=== PATIENT | female | born 1975 | race Caucasian/White ===

== ENCOUNTER 2017-11-04 13:32 | Emergency (ER) | payer OTHER, SELFPAY | END 2017-11-04 14:12 | disposition home or self-care (01) | PROVIDERS: Emergency Provider Nurse Practitioner Family; Family Provider Family Medicine; Visit Provider Nurse Practitioner Family | DX: J09.X2 Influenza due to identified novel influenza A virus with other respiratory manifestations (principal) | CPT/HCPCS: 87804; 99201 ==

== ENCOUNTER → 2017-12-17 08:56 | Outpatient (CLI) | payer OTHER, SELFPAY ==
[2017-12-17 10:36] LABS: Alanine Aminotransferase 25 U/L (12-78); Albumin Level 3.7 gm/dL (3.4-5.0); Alkaline Phosphatase 60 U/L (46-116); Anion Gap 15.6 mEq/L (5-15); Aspartate Amino Transferase 14 U/L (15-37); Bilirubin,Total 0.3 mg/dL (0.2-1.0); Blood Urea Nitrogen 10 mg/dL (7-18); Carbon Dioxide 25 mmol/L (21.0-32.0); Chloride 105 mmol/L (98-107); Chol/HDL Ratio 4.3 (1-3.5); Cholesterol 213 mg/dL (140-200); Creatinine,Serum 0.65 mg/dL (0.55-1.02); Estimated Glomerular Filt Rate 100 ml/min (>60); GFR (African American) 122 ML/MIN (>60); Globulin 3.7 gm/dl (1.3-3.2); Glucose 86 mg/dL (74-106); HDL Cholesterol 50 mg/dL (29-89); LDL Cholesterol 132 mg/dL (0-130); Potassium 4.6 mmoL/L (3.5-5.1); Sodium 141 mmol/L (136-145); Total Protein,Serum 7.4 gm/dL (6.4-8.2); Triglycerides 154 mg/dL (30-200); VLDL Cholesterol 31 mg/dL (0-40)
[2017-12-20 06:28] LABS: Vitamin D 25 Hydroxy 28.8 ng/mL (30.0-100.0)
[2017-12-20 06:31] LABS: Vitamin B12 646 pg/mL (232-1245)
== END ==
PROVIDERS: PCP Physician Assistant; Visit Provider Physician Assistant
DX: E53.8 Deficiency of other specified B group vitamins (principal); E55.9 Vitamin D deficiency, unspecified; Z13.220 Encounter for screening for lipoid disorders
CPT/HCPCS: 36415; 80053; 80061; 82607; 82652

== ENCOUNTER → 2018-01-23 16:25 | Outpatient (CLI) | payer OTHER, SELFPAY ==
--- NOTE | 2018-01-23 16:28 | MM_ITS ---
MM Dig screening mamm BI w/CAD CAD Screening ORDERING PHYSICIAN : Polina Ruiz PATIENT AGE: 42 years GENDER: Female COMPARISON: Previous mammograms: 01/07/2017 INDICATION: Routine screening. Does taking female hormones. No new complaints. Family history. Mother with breast cancer postmenopausal. TECHNIQUE: Standard CC and MLO images were obtained. R2 CAD reviewed. FINDINGS: Low-density breast bilaterally with no dominant mass nor suspicious calcifications in either breast. RIGHT BREAST:. No new areas of concern. Follow-up one year. LEFT BREAST:. Stable small nodular density at the deep left breast appears stable an compatible small intramammary lymph nodes. No significant new findings. . There are some small scattered skin calcifications seen seen along the inferior medial breast but these are slightly more numerous today but appear to be benign features and annual follow-up adequate. IMPRESSION: Stable bilateral mammogram with no new findings. Follow-up one year recommended & would be encouraged given patient's family history BI-RADS Category: 1 Negative RECOMMENDED FOLLOW-UP: 1YR - 1 YEAR FOLLOW-UP (A letter has been sent to the patient regarding results of the study.)
== END ==
PROVIDERS: Family Provider Family Medicine; PCP Family Medicine; Visit Provider Obstetrics & Gynecology Gynecology
DX: Z12.31 Encounter for screening mammogram for malignant neoplasm of breast (principal)
CPT/HCPCS: 77067

== ENCOUNTER → 2019-03-02 13:08 | Outpatient (CLI) | payer OTHER, SELFPAY ==
--- NOTE | 2019-03-02 13:12 | MM_ITS ---
MM Dig screening mamm BI w/CAD CAD Screening COMPARISON: Digital mammograms with CAD 01/23/2018 and 01/07/2017 INDICATION: There is a history of breast cancer in patient's mother diagnosed after menopause. TECHNIQUE: Standard CC and MLO images were obtained. R2 CAD reviewed. FINDINGS: Scattered fibroglandular densities are seen throughout both breast. There are stable small benign-appearing nodular densities near the axillary tails of each breast likely low-lying nodes. There is a small nodular density central portion left breast which is stable and unchanged from previous exam and only definitely seen on the cc view there is no suspicious lesion and there are no suspicious microcalcifications. There are couple benign-appearing microcalcifications in each breast. IMPRESSION: Fibrofatty parenchyma with no suspicious lesion seen BI-RADS Category: 2 Benign Finding(s) RECOMMENDED FOLLOW-UP: 1YR - 1 YEAR FOLLOW-UP (A letter has been sent to the patient regarding results of the study.)
== END ==
PROVIDERS: PCP Family Medicine; Visit Provider Obstetrics & Gynecology Gynecology
DX: Z12.31 Encounter for screening mammogram for malignant neoplasm of breast (principal)
CPT/HCPCS: 77067

== ENCOUNTER → 2019-03-08 08:29 | Outpatient (CLI) | payer OTHER, SELFPAY ==
[2019-03-08 10:31] LABS: Alanine Aminotransferase 22 U/L (12-78); Albumin Level 3.7 gm/dL (3.4-5.0); Alkaline Phosphatase 65 U/L (46-116); Anion Gap 15.4 mEq/L (5-15); Aspartate Amino Transferase 13 U/L (15-37); Bilirubin,Total 0.5 mg/dL (0.2-1.0); Blood Urea Nitrogen 9 mg/dL (7-18); Calcium 9.3 mg/dL (8.5-10.1); Carbon Dioxide 25 mmol/L (21.0-32.0); Chloride 102 mmol/L (98-107); Chol/HDL Ratio 4.5 (1-3.5); Cholesterol 221 mg/dL (140-200); Creatinine,Serum 0.68 mg/dL (0.55-1.02); Estimated Glomerular Filt Rate 94 ml/min (>60); GFR (African American) 114 ML/MIN (>60); Globulin 3.7 gm/dl (1.3-3.2); Glucose 84 mg/dL (74-106); HDL Cholesterol 49 mg/dL (29-89); LDL Cholesterol 138 mg/dL (0-130); Potassium 4.4 mmoL/L (3.5-5.1); Sodium 138 mmol/L (136-145); Thyroid Stimulating Hormone 1.86 uIU/ml (0.358-3.740); Total Protein,Serum 7.4 gm/dL (6.4-8.2); Triglycerides 169 mg/dL (30-200); VLDL Cholesterol 34 mg/dL (0-40)
[2019-03-09 14:43] LABS: Vitamin B12 1060 pg/mL (232-1245); Vitamin D 25 Hydroxy 32.9 ng/mL (30.0-100.0)
== END ==
PROVIDERS: Visit Provider Physician Assistant
DX: R53.83 Other fatigue (principal); E55.9 Vitamin D deficiency, unspecified; Z13.220 Encounter for screening for lipoid disorders
CPT/HCPCS: 36415; 80053; 80061; 82607; 82652; 84439; 84443

== ENCOUNTER → 2020-03-25 10:08 | Outpatient (CLI) | payer OTHER, SELFPAY ==
[2020-03-25 12:20] LABS: Alanine Aminotransferase 16 U/L (12-78); Albumin Level 4.5 g/dl (3.5-5.0); Albumin/Globulin Ratio 1.5 (1.1-1.8); Alkaline Phosphatase 70 U/L (38-126); Anion Gap 11.6 mEq/L (5-15); Aspartate Amino Transferase 24 U/L (14-36); Bilirubin,Total 0.2 mg/dl (0.2-1.3); Blood Urea Nitrogen 8 mg/dl (7-17); Calcium 9.8 mg/dl (8.4-10.2); Carbon Dioxide 26 mmol/L (22.0-30.0); Chloride 102 mmol/L (98-107); Chol/HDL Ratio 3.4 (1-3.5); Cholesterol 213 mg/dl (140-200); Estimated Glomerular Filt Rate 91 ml/min (>60); GFR (African American) 110 ML/MIN (>60); Glucose 99 mg/dl (74-100); HDL Cholesterol 62 mg/dl (40-60); Potassium 4.6 mmoL/L (3.5-5.1); Sodium 135 mmol/L (136-145); Total Protein,Serum 7.5 g/dl (6.3-8.2); Triglycerides 281 mg/dl (30-150); VLDL Cholesterol 56 mg/dL (0-40)
[2020-03-25 12:31] LABS: Direct LDL Cholesterol 134.19 mg/dL (100-129)
[2020-03-26 11:28] LABS: Vitamin B12 844 pg/mL (232-1245); Vitamin D 25 Hydroxy 34.6 ng/mL (30.0-100.0)
== END ==
PROVIDERS: Visit Provider Physician Assistant
DX: I10 Essential (primary) hypertension (principal); E53.8 Deficiency of other specified B group vitamins; E55.9 Vitamin D deficiency, unspecified; Z13.220 Encounter for screening for lipoid disorders
CPT/HCPCS: 36415; 80053; 80061; 82607; 82652

== ENCOUNTER → 2020-04-02 15:25 | Outpatient (CLI) | payer OTHER, SELFPAY ==
--- NOTE | 2020-04-02 15:30 | MM_ITS ---
PROCEDURE: MM DIG SCREENING MAMM BI W/CAD Digital Breast Tomosynthesis Included CLINICAL INDICATION: SCREENING There is a history of breast cancer patient's mother diagnosed after menopause. COMPARISON: [facility] DIG MAMM-SCREEN CELSO W/CAD from 01/07/2017 [facility] MM Dig screening mamm BI w/CAD from 01/23/2018 [facility] MM Dig screening mamm BI w/CAD from 03/02/2019 TECHNIQUE: Standard CC and MLO images and 3D Tomosynthesis was obtained. R2 CAD reviewed. FINDINGS: Scattered diffuse fibroglandular densities are seen throughout both breasts. There is a stable benign-appearing nodular density near the axillary tail left breast likely a low-lying node. There is a similar well-defined density near the axillary tail right breast somewhat smaller than on the left side again likely representing a low-lying node. There are few scattered benign-appearing microcalcifications in each breast. There is no new or suspicious lesion in either breast and no suspicious microcalcifications. IMPRESSION: Stable exam with fibrofatty parenchyma and no suspicious lesions seen BI-RAD Category: FOLLOW-UP: 1YR 1 Year Follow-up (A letter has been sent to the patient regarding results of the study.) Dictated by: Dr. Ed Walters MD 04/04/2020 08:[address] Ed Walters MD in [place] 04/04/2020 08:25
== END ==
PROVIDERS: PCP Family Medicine; Visit Provider Obstetrics & Gynecology Gynecology
DX: Z12.31 Encounter for screening mammogram for malignant neoplasm of breast (principal)
CPT/HCPCS: 77063; 77067

== ENCOUNTER → 2021-03-20 08:27 | Outpatient (CLI) | payer OTHER, SELFPAY ==
[2021-03-20 09:32] LABS: Alanine Aminotransferase 18 U/L (12-78); Albumin Level 4.3 g/dl (3.5-5.0); Albumin/Globulin Ratio 1.5 (1.1-1.8); Alkaline Phosphatase 65 U/L (38-126); Anion Gap 9.6 mEq/L (5-15); Aspartate Amino Transferase 27 U/L (14-36); Bilirubin,Total 0.5 mg/dl (0.2-1.3); Blood Urea Nitrogen 9 mg/dl (7-17); Calcium 9.5 mg/dl (8.4-10.2); Carbon Dioxide 29 mmol/L (22.0-30.0); Chloride 103 mmol/L (98-107); Chol/HDL Ratio 4.9 (1-3.5); Cholesterol 239 mg/dl (140-200); Estimated Glomerular Filt Rate 90 ml/min (>60); GFR (African American) 109 ML/MIN (>60); Globulin 2.8 g/dL (1.3-3.2); Glucose 97 mg/dl (74-100); HDL Cholesterol 49 mg/dl (40-60); Potassium 4.6 mmoL/L (3.5-5.1); Sodium 137 mmol/L (136-145); Total Protein,Serum 7.1 g/dl (6.3-8.2); Triglycerides 251 mg/dl (30-150); VLDL Cholesterol 50 mg/dL (0-40)
[2021-03-20 09:43] LABS: Direct LDL Cholesterol 151.71 mg/dL (100-129)
[2021-03-20 10:21] LABS: Vitamin B12 545 pg/mL (239-931)
== END ==
PROVIDERS: Visit Provider Physician Assistant
DX: I10 Essential (primary) hypertension (principal); E53.8 Deficiency of other specified B group vitamins; E55.9 Vitamin D deficiency, unspecified; Z13.220 Encounter for screening for lipoid disorders; Z79.899 Other long term (current) drug therapy
CPT/HCPCS: 36415; 80053; 80061; 82306; 82607

== ENCOUNTER → 2021-04-03 09:56 | Outpatient (CLI) | payer OTHER, SELFPAY ==
--- NOTE | 2021-04-03 10:00 | MM_ITS ---
PROCEDURE INFORMATION: Exam: MG Screening 3D Mammography Exam date and time: 04/03/2021 10:00 AM Age: 46 years old Clinical indication: Encounter for screening mammogram for malignant neoplasm of breast. Family history of breast carcinoma TECHNIQUE: Imaging protocol: Screening tomosynthesis and 2D mammography including computer-aided detection (CAD) when performed. COMPARISON: 1. MG MM DIG SCREENING MAMM BI W/CAD 04/02/2020 3:39 PM 2. MG [facility] MM Dig screening mamm BI w/CAD 03/02/2019 1:27 PM 3. MG [facility] MM Dig screening mamm BI w/CAD 01/23/2018 4:33 PM 4. MG [facility] DIG MAMM-SCREEN CELSO W/CAD 01/07/2017 3:51 PM FINDINGS: MAMMOGRAPHY: Breast composition: There are scattered areas of fibroglandular density. Mass: No new suspicious masses. Architectural distortion: No suspicious distortion. Calcifications: No suspicious calcifications. Asymmetric density: None. Skin thickening: None. Axillary adenopathy: None. IMPRESSION: No mammographic evidence of malignancy. Annual screening is recommended unless otherwise clinically indicated. ASSESSMENT: BI-RADS Category 1: Negative
== END ==
PROVIDERS: PCP Family Medicine; Visit Provider Obstetrics & Gynecology Gynecology
DX: Z12.31 Encounter for screening mammogram for malignant neoplasm of breast (principal)
CPT/HCPCS: 77063; 77067

== ENCOUNTER → 2021-06-03 08:06 | Outpatient (CLI) | payer OTHER, SELFPAY ==
[2021-06-03 08:54] LABS: Alanine Aminotransferase 15 U/L (12-78); Albumin Level 4.1 g/dl (3.5-5.0); Albumin/Globulin Ratio 1.5 (1.1-1.8); Alkaline Phosphatase 68 U/L (38-126); Anion Gap 13.2 mEq/L (5-15); Aspartate Amino Transferase 19 U/L (14-36); Bilirubin,Total 0.5 mg/dl (0.2-1.3); Blood Urea Nitrogen 9 mg/dl (7-17); Calcium 8.9 mg/dl (8.4-10.2); Carbon Dioxide 27 mmol/L (22.0-30.0); Chloride 104 mmol/L (98-107); Chol/HDL Ratio 3.2 (1-3.5); Cholesterol 155 mg/dl (140-200); Estimated Glomerular Filt Rate 90 ml/min (>60); GFR (African American) 109 ML/MIN (>60); Globulin 2.8 g/dL (1.3-3.2); Glucose 94 mg/dl (74-100); HDL Cholesterol 48 mg/dl (40-60); Potassium 4.2 mmoL/L (3.5-5.1); Sodium 140 mmol/L (136-145); Total Protein,Serum 6.9 g/dl (6.3-8.2); Triglycerides 195 mg/dl (30-150); VLDL Cholesterol 39 mg/dL (0-40)
[2021-06-03 09:05] LABS: Direct LDL Cholesterol 80.46 mg/dL (100-129)
== END ==
PROVIDERS: Visit Provider Physician Assistant
DX: I10 Essential (primary) hypertension (principal); E78.49 Other hyperlipidemia
CPT/HCPCS: 36415; 80053; 80061

== ENCOUNTER → 2022-05-04 12:38 | Outpatient (CLI) | payer OTHER, SELFPAY ==
--- NOTE | 2022-05-04 12:41 | MM_ITS ---
PROCEDURE INFORMATION: Exam: MG Bilateral Screening 3D Mammography Exam date and time: 05/04/2022 12:53 PM Age: 47 years old Clinical indication: Screening examination. Her mother had breast cancer. TECHNIQUE: Imaging protocol: Bilateral Screening tomosynthesis and 2D mammography including computer-aided detection (CAD) when performed. COMPARISON: 1. MG MM DIG SCREENING MAMM BI W/CAD 04/03/2021 10:15 AM 2. MG MM DIG SCREENING MAMM BI W/CAD 04/02/2020 3:39 PM 3. MG [facility] MM Dig screening mamm BI w/CAD 03/02/2019 1:27 PM 4. MG [facility] MM Dig screening mamm BI w/CAD 01/23/2018 4:33 PM FINDINGS: MAMMOGRAPHY: Breast composition: There are scattered areas of fibroglandular density. Mass: No suspicious mass. Architectural distortion: None. Calcifications: No suspicious calcifications. Asymmetric density: None. Skin thickening: None. Axillary adenopathy: None. IMPRESSION: No mammographic evidence of malignancy. Annual screening is recommended unless otherwise clinically indicated. ASSESSMENT: BI-RADS Category 1: Negative
== END ==
PROVIDERS: PCP Family Medicine; Visit Provider Physician Assistant
DX: Z12.31 Encounter for screening mammogram for malignant neoplasm of breast (principal)
CPT/HCPCS: 77063; 77067

== ENCOUNTER → 2023-04-20 09:49 | Outpatient (POV) | payer OTHER, SELFPAY | PROVIDERS: Visit Provider Specialist/Technologist | DX: Z00.00 Encounter for general adult medical examination without abnormal findings (principal) ==

== ENCOUNTER → 2023-07-27 09:43 | Outpatient (CLI) | payer OTHER, SELFPAY ==
--- NOTE | 2023-07-27 09:55 | MM_ITS ---
PROCEDURE INFORMATION: Exam: MG Bilateral Screening 3D Mammography Exam date and time: 07/27/2023 9:51 AM Age: 48 years old Clinical indication: Screening examination; Family history of breast cancer in mother; Mother's age: 60 years . TECHNIQUE: Imaging protocol: Bilateral Screening tomosynthesis and 2D mammography including computer-aided detection (CAD) when performed. COMPARISON: 1. MG MM DIG SCREENING MAMM BI W/CAD 05/04/2022 12:53 PM 2. MG MM DIG SCREENING MAMM BI W/CAD 04/03/2021 10:15 AM 3. MG MM DIG SCREENING MAMM BI W/CAD 04/02/2020 3:39 PM 4. MG [facility] MM Dig screening mamm BI w/CAD 03/02/2019 1:27 PM FINDINGS: MAMMOGRAPHY: Breast composition: There are scattered areas of fibroglandular density. Mass: Questionable 0.4 cm iso to possibly hypodense mass, perhaps oil cyst, in the upper right breast, anterior to middle 3rd, 4 cm from the nipple, MLO frame 60. Architectural distortion: None. Calcifications: No suspicious calcifications. Asymmetric density: None. Skin thickening: None. Axillary adenopathy: None. IMPRESSION: Patient will be recalled for right diagnostic mammography with spot compression in the MLO and CC projections with right sonography for further evaluation of questionable right breast mass. ASSESSMENT: BI-RADS Category 0: Incomplete- Need Additional Imaging Evaluation and/or Prior Mammograms for Comparison
== END ==
PROVIDERS: PCP Family Medicine; Visit Provider Obstetrics & Gynecology Gynecology
DX: Z12.31 Encounter for screening mammogram for malignant neoplasm of breast (principal)
CPT/HCPCS: 77063; 77067

== ENCOUNTER → 2023-09-02 13:37 | Outpatient (CLI) | payer OTHER, SELFPAY ==
--- NOTE | 2023-09-02 13:40 | MM_ITS ---
PROCEDURE INFORMATION: Exam: US Right Breast, Complete MG Right Diagnostic Breast Tomosynthesis Exam date and time: 09/02/2023 1:42 PM Age: 48 years old Clinical indication: Patient recalled on the basis of a screening mammogram for further evaluation; Right breast; mass TECHNIQUE: Imaging protocol: Complete ultrasound of all four quadrants of the right breast and the retroareolar regions, including ultrasound of the axilla when performed. Right Diagnostic tomosynthesis and 2D mammography including computer-aided detection (CAD) when performed. Unilateral or bilateral exam. COMPARISON: 1. MG MM DIG SCREENING MAMM BI W/CAD 07/27/2023 9:51 AM 2. MG MM DIG SCREENING MAMM BI W/CAD 05/04/2022 12:53 PM FINDINGS: MAMMOGRAPHY: Digital diagnostic spot compression views of the right breast and 90 degree lateral view of the right breast demonstrate a minimally calcified benign oil cyst measuring 0.4 cm in greatest dimension. ULTRASOUND: Sonographic images of the right breast including the retroareolar region, all 4 quadrants and the axilla do not demonstrate any solid masses. 0.4 cm cyst in the 10 o'clock axis 3 cm from the nipple adjacent to a 0.4 cm cyst in the 11 o'clock axis 3 cm from the nipple. No architectural distortion or acoustical shadowing. No skin thickening or axillary adenopathy. IMPRESSION: No mammographic or sonographic evidence of malignancy. Annual bilateral mammographic screening is recommended unless otherwise clinically indicated. Assessment: BI-RADS Category 2: Benign
== END ==
PROVIDERS: PCP Family Medicine; Visit Provider Obstetrics & Gynecology Gynecology
DX: R92.8 Other abnormal and inconclusive findings on diagnostic imaging of breast (principal)
CPT/HCPCS: 76641; 77061; 77065; G0279

== ENCOUNTER 2024-09-22 08:48 | Outpatient (CLI) | payer OTHER, SELFPAY ==
[2024-09-22 09:47] LABS: Alanine Aminotransferase 32 U/L (12-78); Albumin Level 4.4 g/dl (3.5-5.0); Albumin/Globulin Ratio 1.6 (1.1-1.8); Alkaline Phosphatase 76 U/L (38-126); Anion Gap 13.3 mEq/L (5-15); Aspartate Amino Transferase 26 U/L (14-36); Bilirubin,Total 0.5 mg/dl (0.2-1.3); Blood Urea Nitrogen 12 mg/dl (7-17); Calcium 9.3 mg/dl (8.4-10.2); Carbon Dioxide 26 mmol/L (22.0-30.0); Chloride 104 mmol/L (98-107); Cholesterol 173 mg/dl (140-200); Estimated Glomerular Filt Rate 107 ml/min (>60); GFR (African American) 129 ML/MIN (>60); Globulin 2.7 g/dL (1.3-3.2); Glucose 109 mg/dl (74-100); HDL Cholesterol 57 mg/dl (40-60); Potassium 4.3 mmoL/L (3.5-5.1); Sodium 139 mmol/L (136-145); Total Protein,Serum 7.1 g/dl (6.3-8.2); Triglycerides 115 mg/dl (30-150); VLDL Cholesterol 23 mg/dL (0-40)
[2024-09-22 09:58] LABS: Direct LDL Cholesterol 106.71 mg/dL (100-129)
[2024-09-22 10:18] LABS: Thyroid Stimulating Hormone 1.61 uIU/mL (0.465-4.68)
[2024-09-22 10:55] LABS: Vitamin B12 979 pg/mL (239-931)
--- OUTSIDE RECORDS SUMMARY | 2024-09-23 15:14 | XMS_ITS ---
Author Organization [facility] Address [address] [facility] [address] [place] [phone] Care Team Providers Care Regulator Pin Inserter Name Role Phone Harjit Keene Primary Care Provider Cara Cutler Unavailable [phone] ALLERGIES Allergen (clinical drug ingredient) Drug/Non Drug Allergy documented on EMR Reaction Allergy Type Onset Date Status sulfadiazine sulfADIAZINE rash Drug Allergy A ctive Substance with penicillin structure and antibacterial mechanism of action (substance) Penicillins Unknown Drug Allergy Active RESULTS Component Value Reference Range Notes P-Vitamin D 25-Hydroxy Reviewed date:08/08/2023 02:36:08 PM Interpretation: Performing Lab: Notes/Report: Test performed by [facility] [address] [place] [address] , [address], [place] [address] German Gastelum MD, Air Quality Chemist CLIA: [id number] Vitamin D 25-Hydroxy 41.1 30.0-100.0 ng/mL Interpretation of Vitamin D 25 OH: < 20 ng/mL - Deficiency 20 - 29 ng/mL - Insufficiency 30 - 100 ng/mL - Sufficiency > 100 ng/mL - Super-therapeutic- toxicity may occur above this level. Clinical correlation required. REASON FOR VISIT checkup with refills MEDICATIONS Medication SIG (Take, Route, Frequency, Duration) Notes Start Date End Date Status Flonase Allergy Relief 50 MCG/ACT 1 spray(s) in each nostril once a day for 30 day(s) 02/02/2023 Active Atorvastatin Calcium 10 MG 1 tab(s) oral ly once a day for 90 days Active Montelukast Sodium 10 MG 1 tab(s) orally once a day for 90 days Active Metoprolol Succinate ER 100 MG 1 tab(s) orally once a day for 90 days Active Fexofenadine HCl 180 MG 1 tab(s) orally once a day for 90 days Not-Taking Vitamin D3 50 MCG (2000 UT) 1 tab(s) ora lly once a day for 30 day(s) Active Venlafaxine HCl ER 75 MG 1 capsule with food Orally Once a day for 90 days Active Vitamin C 500 MG 1 tab(s) orally once a day for 30 day(s) Active Vitamin B 12 500 MCG 1 tab(s) orally onc e a day for 30 day(s) Active Lysine 1000 MG 1 tab(s) orally once a day for 30 day(s) Active Levocetirizine Dihydrochloride 5 MG 1 tablet in the evening Orally Once a day for 30 day(s) Active VITAL SIGNS Weight 231.4 lbs 08/04/2023 Blood pressure systolic 130 mm Hg 08/04/20 23 Blood pressure diastolic 90 mm Hg 023 Heart Rate 76 /min 08/04/2023 Height 65 in 08/04/2023 BMI 38.50 kg/m2 08/04/2023 Encounters Encounter Location Date Provider Diagnosis [facility] [address] [facility] [address] [place], [place] [id number] 08/04/2023 Cara Cutler Depression with anxi ety F41.8 and Vitamin D deficiency E55.9 ASSESSMENTS Encounter Date Diagnosis Assessment Notes Treatment Notes Treatment Clinical Notes 08/04/2023 Depression with anxiety (ICD-10 - F41.8) 08/04/2023 Vitamin D deficiency (ICD-10 - E55.9) PLAN OF TREATMENT Medication Medication Name Sig Start Date Stop Date Notes Venlafaxine HCl ER 75 MG 1 capsule with food Orally Once a day for 90 days Next Appt Details Follow Up: via phone to repo rt test results, Reason: Progress Notes * Examination Category Sub-Category Detail Notes Psychology Heart: RSR Lungs: clear to auscultatio n General Appearance: NAD Neurologic Exam: Intact, gait normal Grooming : adequate Eye contact : normal Mood : pleasant
--- OUTSIDE RECORDS SUMMARY | 2024-09-23 15:14 | XMS_ITS ---
Author Organization [facility] Address [address] [facility] [address] [place] [phone] Care Team Providers Care Hand Box Folder Name Role Phone Harjit Keene Primary Care Provider OmayraCara Unavailable [phone] ALLERGIES Allergen (clinical drug ingredient) Drug/Non Drug Allergy documented on EMR Reaction Allergy Type Onset Date Status sulfadiazine sulfADIAZINE rash Drug Allergy A ctive Substance with penicillin structure and antibacterial mechanism of action (substance) Penicillins Unknown Drug Allergy Active RESULTS Component Value Reference Range Notes Influenza Screen (in house) Reviewed date:10/27/2023 10:50:16 AM Interpretation: Performing Lab: Notes/Report: results neg CBC Fingerstick (in house) Reviewed date:10/27/2023 10:50:00 AM Interpretation: Performing Lab: Notes/Report: wbc 9.3 3.5 - 10 lym 20.0 15 - 50 mid 4.7 2 - 15 gran 75.3 35 - 80 rbc 4.27 3.5 - 5.5 hgb 12.9 11.5 - 16.5 hct 38.6 35 - 55 mcv 90.1 75 - 100 mch 30.1 25 - 35 mchc 33.4 31 - 38 plat 275 100 - 400 Covid test (in house) Reviewed date:10/27/2023 10:50:09 AM Interpretation: Performing Lab: Notes/Report: Result: neg REASON FOR VISIT head congestion MEDICATIONS Medication SIG (Take, Route, Frequency, Duration) Notes Start Date End Date Status Fexofenadine HCl 180 MG 1 tab(s) orally once a day for 90 days Not-Taking Atorvastatin Calcium 10 MG Take 1 tablet by mouth once daily for 90 Active Montelukast Sodium 10 MG Take 1 tablet b y mouth once daily for 90 Active Cephalexin 500 MG 1 capsule Orally Two times a day for 10 day(s) 10/27/2023 Active Uyjdwbtee-Dutxinoj-ZF 30-2-10 MG/5ML 5-10 ml Orally 4 times a day, prn 10/27/2023 Active Flonase Allergy Relief 50 MCG/ACT 1 spray(s) in each nostril once a day for 30 day(s) 02/02/2023 Active Lysine 1000 MG 1 tab(s) orally once a day for 30 day(s) Active Metoprolol Succinate ER 100 MG 1 tab(s) orally once a day for 90 days Active Vitamin B 12 500 MCG 1 tab(s) orally onc e a day for 30 day(s) Active Medrol 4 MG as directed orally daily for 6 days 10/27/2023 Active Levocetirizine Dihydrochloride 5 MG 1 tablet in the evening Orally Once a day for 30 day(s) Active Venlafaxine HCl ER 75 MG 1 capsule with food Orally Once a day for 90 days Active Vitamin C 500 MG 1 tab(s) orally once a day for 30 day(s) Active Vitamin D3 50 MCG (2000 UT) 1 tab(s) ora lly once a day for 30 day(s) Active VITAL SIGNS Weight 231 lbs 10/27/2023 Blood pressure systolic 128 mm Hg 10/27/20 23 Blood pressure diastolic 90 mm Hg 023 Heart Rate 94 /min 10/27/2023 Height 65 in 10/27/2023 BMI 38.44 kg/m2 10/27/2023 Encounters Encounter Location Date Provider Diagnosis [facility] [address] [facility] [address] [place], [place] [phone] 10/27/2023 Cara Cutler Acute URI J06.9 and Folliculitis L73.9 ASSESSMENTS Encounter Date Diagnosis Assessment Notes Treatment Notes Treatment Clinical Notes 10/27/2023 Acute URI (ICD-10 - J06.9) Will watch BP while on the bromfed. 10/27/2023 Folliculitis (ICD-10 - L73.9) PLAN OF TREATMENT Medication Medication Name Sig Start Date Stop Date Notes Cephalexin 500 MG 1 capsule Orally Two times a day for 10 day(s) 10/27/2023 Frcujzwzq-Timndyfy-UD 30-2-1 0 MG/5ML 5-10 ml Orally 4 times a day, prn 10/27/2023 Medrol 4 MG as directed orally d aily for 6 days 10/27/2023 Treatment Notes Assessment Notes Acute URI Will watch BP while on the bromfed. Next Appt Details Follow Up: prn, Reason: Progress Notes * Examination Category Sub-Category Detail Notes ENT/Respiratory Oral cavity : erythema without exudate on pharynx, PND present Sinuses : tender maxillary sin uses bilaterally Ears: auditory canals norm al bilaterally, TM's WNL Neck : no cervical lymphade nopathy Heart : RRR, normal S1 S2, n o murmurs Lungs: clear to auscultatio n bilaterally General Appearance: NAD Nose : turbinates red, very congested Skin : there are scattered erythematous hair follicles on the lower abdomen History and Physical Notes * HPI (History of Present Illness) Category Sub-Category Detail Notes ENT/respiratory sore throat ear pain fullness cough Pt states she has be en coughing for 2 days, dry without any sputum production Fever headache pressure like sensat ion nasal congestion runny nose, green dr angel
--- OUTSIDE RECORDS SUMMARY | 2024-09-23 15:14 | XMS_ITS ---
Author Organization [facility] Address [address] [place] [phone] Care Team Providers Care Physician Name Role Phone Harjit Keene Primary Care Provider [phone] JoseCara brown Danielle [phone] ALLERGIES Allergen (clinical drug ingredient) Drug/Non Drug Allergy documented on EMR Reaction Allergy Type Onset Date Status sulfadiazine sulfADIAZINE rash Drug Allergy A ctive Substance with penicillin structure and antibacterial mechanism of action (substance) Penicillins Unknown Drug Allergy Active RESULTS Component Value Reference Range Notes H-TSH (Not yet reviewed by terri hung) Interpretation: Performing Lab: Notes/Report: TSH 1.61 0.465-4.68 uIU/mL H-VITAMIN D (Not yet reviewe d by provider) Interpretation: Performing Lab: Notes/Report: TVITD 46.0 30-100 ng/mL Deficient <20 ng/mL Insufficient 20-30 ng/mL Sufficient 30-100 ng/mL Potential Toxicity >100 ng/mL H-Lipid Panel (Not yet revie wed by provider) Interpretation: Performing Lab: Notes/Report: Patient Fasting? Y TRIG 115 30-150 mg/dl CHOL 173 140-200 mg/dl DLDL 106.71 100-129 mg/dL VLDL 23 0-40 mg/dL HDL 57 40-60 mg/dl CHLHDL 3.0 1-3.5 H-CMP (Not yet reviewed by terri hung) Interpretation: Performing Lab: Notes/Report: NA 139 136-145 mmol/L [...] 1.1-1.8 ALP 76 38-126 U/L H-VITAMIN B12 (Not yet revie wed by provider) Interpretation: Performing Lab: Notes/Report: VITB12 979 239-931 pg/mL CBC Fingerstick (in house) Reviewed date:09/20/2024 02:04:32 [...] - 38 plat 199 100 - 400 REASON FOR VISIT refills MEDICATIONS Medication SIG (Take, Route, Frequency, Duration) Notes Start Date End Date Status Lysine 1000 MG 1 tab(s) orally once a day for 30 day(s) Active Medrol 4 MG as directed orally daily for 6 days 09/20/2024 Active Atorvastatin Calcium 10 MG take 1 tablet by mouth once daily for 90 days Orally once daily for 90 days Active Flonase Allergy Relief 50 MCG/ACT 1 spray in each nostril Nasally Once a day Active Vitamin B 12 500 MCG 1 tab(s) orally onc e a day for 30 day(s) Active Montelukast Sodium 10 MG take 1 tablet b y mouth once daily for 90 days Orally once daily for 90 days Active Levocetirizine Dihydrochloride 5 MG 1 tablet in the evening Orally Once a day for 90 days Active Vitamin C 500 MG 1 tab(s) orally once a day for 30 day(s) Active Vitamin D3 50 MCG (1999 UT) 1 tab(s) ora lly once a day for 30 day(s) Active Cefdinir 300 MG 1 cap(s) Orally Two times a day for 10 day(s) 09/20/2024 Active Venlafaxine HCl ER 75 MG 1 capsule with food Orally Once a day for 90 days Active Metoprolol Succinate 100 MG 1 capsule Or ally Once a day for 90 days Active Benzonatate 200 MG 1 capsule Orally Thr ee times a day 09/20/2024 Active VITAL SIGNS Weight 229.2 lbs 09/20/2024 Blood pressure systolic 140 mm Hg 09/20/20 24 Blood pressure diastolic 100 mm Hg 024 Heart Rate 109 /min 09/20/2024 Height 65 in 09/20/2024 BMI 38.14 kg/m2 09/20/2024 Encounters [facility] [address] [phone] 09/20/2024 Cara Cutler Essential hypertensi on I10 ; Vitamin D deficiency E55.9 ; Vitamin B12 deficiency E53.8 ; Depression with anxiety F41.8 ; Seasonal allergic rhinitis, unspecified trigger J30.2 ; Mixed hyperlipidemia E78.2 ; Tachycardia R00.0 ; Acute URI J06.9 and Pain, joint, knee, right M25.561 ASSESSMENTS Encounter Date Diagnosis Assessment Notes Treatment Notes Treatment Clinical Notes 09/20/2024 Essential hypertension (ICD-10 - I10) 09/20/2024 Vitamin D deficiency (ICD-10 - E55.9) 09/20/2024 Vitamin B12 deficiency (ICD-10 - E53.8) 09/20/2024 Depression with anxiety (ICD-10 - F41.8) 09/20/2024 Seasonal allergic rhinitis, unspecified trigger (ICD-10 - J30.2) 09/20/2024 Mixed hyperlipidemia (ICD-10 - E78.2) 09/20/2024 Tachycardia (ICD-10 - R00.0) 09/20/2024 Acute URI (ICD-10 - J06.9) 09/20/2024 Pain, joint, knee, right (ICD-10 - M25.561) PLAN OF TREATMENT Medication Medication Name Sig Start Date Stop Date Notes Medrol 4 MG as directed orally d aily for 6 days 09/20/2024 Atorvastatin Calcium 10 MG take 1 tablet by mouth once daily for 90 days Orally once daily for 90 days Flonase Allergy Relief 50 MCG/ACT 1 spra y in each nostril Nasally Once a day Montelukast Sodium 10 MG take 1 tablet b y mouth once daily for 90 days Orally once daily for 90 days Levocetirizine Dihydrochlori de 5 MG 1 tablet in the evening Orally Once a day for 90 days Cefdinir 300 MG 1 cap(s) Orally Two times a day for 10 day(s) 09/20/2024 Venlafaxine HCl ER 75 MG 1 capsule with food Orally Once a day for 90 days Metoprolol Succinate 100 MG 1 capsule Or ally Once a day for 90 days Benzonatate 200 MG 1 capsule Orally Thr ee times a day 09/20/2024 Pending Test Test Name Order Date H-TSH 09/20/2024 H-VITAMIN D 09/20/2024 H-Lipid Panel 09/20/2024 H-CMP 09/20/2024 H-VITAMIN B12 09/20/2024 Next Appt Details Follow Up: via phone to repo rt test results, Reason: Progress Notes * Examination Category Sub-Category Detail Notes General Examination HEENT: sclera and c onjunctiva [...] shape and exp ansion Knee / [facility]: negative Drawer test: negative Patellofemoral joint: crepitations with movement Palpation: tenderness on medial jointline Knee: right Inspection: mild edema along the medial jointline, no erythema Range of motion: normal flexion and e xtension Collateral ligaments: intact medially an d laterally History and Physical Notes * HPI (History of Present Illness) Category Sub-Category Detail Notes ENT/respiratory sore throat cough nasal congestion Knee/Bashir knee pain right side HPI Patient is here today for Pt is here today for refills
--- OUTSIDE RECORDS SUMMARY | 2024-09-23 15:14 | XMS_ITS | Patient Health Record ---
[facility] Address [address] [place] [phone] Care Team Providers Care Paraprofessional Aide Name Role Phone Harjit Keene Primary Care Provider [phone] Cara Cutler [phone] ALLERGIES Allergen (clinical drug ingredient) Drug/Non Drug [...] AM Interpretation: Performing Lab: Notes/Report: Result: neg H-TSH (Not yet reviewed by terri hung) [...] plat 199 100 - 400 REASON FOR REFERRAL No Information MEDICATIONS Medication SIG (Take, Route, Frequency, Duration) Notes Start Date End Date Status Medrol 4 MG as directed orally daily for 6 days 09/20/2024 Active Atorvastatin Calcium 10 MG take 1 tablet by mouth once daily for 90 days Orally once daily for 90 days Active Flonase Allergy Relief 50 MCG/ACT 1 spray in each nostril Nasally Once a day Active Montelukast Sodium 10 MG take 1 tablet b y mouth once daily for 90 days Orally once daily for 90 days Active Levocetirizine Dihydrochloride 5 MG 1 tablet in the evening Orally Once a day for 90 days Active Vitamin B 12 500 MCG 1 tab(s) orally onc e a day for 30 day(s) Active Venlafaxine HCl ER 75 MG 1 capsule with food Orally Once a day for 90 days Active Vitamin C 500 MG 1 tab(s) orally once a day for 30 day(s) Active Metoprolol Succinate 100 MG 1 capsule Or ally Once a day for 90 days Active Vitamin D3 50 MCG (2000 UT) 1 tab(s) ora lly once a day for 30 day(s) Active Cefdinir 300 MG 1 cap(s) Orally Two times a day for 10 day(s) 09/20/2024 Active Benzonatate 200 MG 1 capsule Orally Thr ee times a day 09/20/2024 Active Lysine 1000 MG 1 tab(s) orally once a day for 30 day(s) Active IMMUNIZATIONS Vaccine Route Administration Date Status Comme nts Hepatitis A (adult) IM Intramuscular 10/24/2018 Administer ed Hepatitis A (adult) IM Intramuscular 05/02/2019 Administer ed SOCIAL HISTORY Sex Assigned At : Social History Observation Description Sex Assigned At Unknown PROBLEMS Problem Type ICD Code Onset Dates Problem Status W/U Status Risk SNOMED Code Notes Problem Sinusitis (J32.9) Active confirmed Sinu sitis (26698330) Problem Vitamin D deficiency (E55.9) Active confirmed 81241059 Problem Essential hypertension (I10) Active confirmed 08215673 Problem Depression with anxiety (F41.8) Active confirmed 69889760 Problem Mixed hyperlipidemia (E78.2) Active confirmed 748227005 Problem Seasonal allergic rhinitis, unspecified trigger (J30.2) Active confirmed 227968773 Problem Chronic otitis media of left ear with effusion (H65.492) Active confirmed 103694084 Problem Hypertension, unspecified type (I10) Active confirmed 57720764 Problem Other hyperlipidemia (E78.49) Active confirmed 33259574 VITAL SIGNS Heart Rate 109 /min 09/20/2024 Blood pressure diastolic 100 mm Hg 09/20/2024 Height 65 in 09/20/2024 Blood pressure systolic 140 mm Hg 09/20/2024 Weight 229.2 lbs 09/20/2024 BMI 38.14 kg/m2 09/20/2024 Encounters Encounter [facility] Date [facility] [address] [id number] 10/27/2023 Cara Josekevin Acute URI J06.9 and Folliculitis L73.9 [facility] [address] [address] [id number] 09/20/2024 Cara Crowkevin Essential hypertensi on I10 ; Vitamin D deficiency E55.9 ; Vitamin B12 deficiency E53.8 ; Depression with anxiety F41.8 ; Seasonal allergic rhinitis, unspecified trigger J30.2 ; Mixed hyperlipidemia E78.2 ; Tachycardia R00.0 ; Acute URI J06.9 and Pain, joint, knee, right M25.561 ASSESSMENTS Encounter Date Diagnosis Assessment Notes Treatment Notes Treatment Clinical Notes 10/27/2023 Folliculitis (ICD-10 - L73.9) 10/27/2023 Acute URI (ICD-10 - J06.9) Will watch BP while on the bromfed. 09/20/2024 Essential hypertension (ICD-10 - I10) 09/20/2024 [...] right (ICD-10 - M25.561) PLAN OF TREATMENT Pending Test Test Name Order Date VITAMIN D, 25-HYDROXY 03/18/2021 H-TSH 09/20/2024 H-VITAMIN D 09/20/2024 H-Lipid Panel 09/20/2024 H-CMP 09/20/2024 H-VITAMIN B12 09/20/2024 Insurance Providers Payer Name Payer Address Payer Phone Subscriber Number Group Number Insured Name Patient Relationship to Insured Coverage Start Date Coverage End Date [employer] [facility] [address] [place], [place] [phone] [id number] APURVA ZHOU Self - patient is the insured MEDICATIONS ADMINISTERED Medication Instructions Date of Administration Dosage Notes Dexamethasone 08/15/2008 4 mg MEDICAL (GENERAL) HISTORY Surgical History Surgery Date(Month/Year) Total hysterectomy 12/17/2021 Hospitalization History Reason Date(Month/Year)
== END 2024-09-22 23:59 | disposition home or self-care (01) ==
LOC: LAB 08:50
PROVIDERS: PCP Physician Assistant; Visit Provider Physician Assistant
DX: E78.2 Mixed hyperlipidemia (principal); E53.8 Deficiency of other specified B group vitamins; E55.9 Vitamin D deficiency, unspecified; I10 Essential (primary) hypertension
CPT/HCPCS: 36415; 80053; 80061; 82306; 82607; 84443

== ENCOUNTER 2024-10-09 15:19 | Outpatient (CLI) | payer OTHER, SELFPAY ==
--- NOTE | 2024-10-09 15:22 | MM_ITS ---
PROCEDURE INFORMATION: Exam: MG Bilateral Screening 3D Mammography Exam date and time: 10/09/2024 3:18 PM Age: 49 years old Clinical indication: Screening examination TECHNIQUE: Imaging protocol: Bilateral Screening tomosynthesis and 2D mammography including computer-aided detection (CAD) when performed. COMPARISON: 1. MG MM DIG MAMM DX UNILAT RT CAD 09/02/2023 1:42 PM 2. MG MM DIG SCREENING MAMM BI W/CAD 07/27/2023 9:51 AM FINDINGS: MAMMOGRAPHY: Breast composition: There are scattered areas of fibroglandular density. Mass: None. Architectural distortion: None. Calcifications: No suspicious calcifications. Asymmetric density: None. Skin thickening: None. Axillary adenopathy: None. IMPRESSION: No mammographic evidence of malignancy. Annual screening is recommended unless otherwise clinically indicated. ASSESSMENT: BI-RADS Category 1: Negative.
== END 2024-10-09 23:59 | disposition home or self-care (01) ==
LOC: RAD 15:20
PROVIDERS: PCP Family Medicine; Visit Provider Obstetrics & Gynecology Gynecology
DX: Z12.31 Encounter for screening mammogram for malignant neoplasm of breast (principal)
CPT/HCPCS: 77063; 77067

== ENCOUNTER 2025-09-26 08:08 | Outpatient (CLI) | payer OTHER, SELFPAY ==
--- OUTSIDE RECORDS SUMMARY | 2024-09-20 08:15 | XMS_ITS ---
Author Organization [facility] Address [address] [facility] [address] [place] [phone] Care Team Providers Care Outdoor Studies Professor Name Role Phone Harjit Keene Primary Care Provider JoseCara brown Unavailable [phone] Allergies Allergen (clinical drug ingredient) Drug/Non Drug [...] times a day 09/20/2024 Active Vital Signs Weight 229.2 lbs 09/20/2024 Blood pressure systolic 140 mm Hg 09/20/20 24 Blood pressure diastolic 100 mm Hg 024 Heart Rate 109 /min 09/20/2024 Height 65 in 09/20/2024 BMI 38.14 kg/m2 09/20/2024 Encounters Encounter Location Date Provider Diagnosis [facility] [address], [place] [id number] 09/20/2024 Cara Cutler Essential hypertensi on I10 [...] APURVA ZHOU NDOB: [birth year] (50 yo F)Acc No.[id number]:09/20/2024 Progress Notes Patient: APURVA EUGENE N Provider: MARJ Alcazar :1975 A ge:49 Y S ex:Female Date:09/20/2024 Address:[address] [place], [place] [address], [id number] Pcp:Harjit Keene Subjective: * Chief Complaints: * [...] * Procedure Codes: 9 [address] [place], [address] CAPILLARY BLOOD DRAW, 44928 CBC WITH AUTO DIFF * Follow Up: v ia phone to report test results * Images: Billing Information: * Visit Code: 99532 Office Visit, Est Pt., Level 4. * Procedure Codes: [address] [place]. [address] CAPILLARY BLOOD DRAW. 72570 CBC WITH AUTO DIFF. * Electronic signature of MARJ Feldman on 09/26/2025 at 08:12 AM EST Sign off status: Pending * Provider: MARJ Alcazar Date: 11/20/2023 Generated for Printi ng/Faxing/eTransmitting on: 11/26/2024 08:12 AM EST History and Physical Notes * HPI [...] shape and exp ansion Knee / [facility]: negative Drawer test: negative Patellofemoral joint: crepitations with movement Palpation: tenderness on medial jointline Knee: right Inspection: mild edema along the medial jointline, no erythema Range of motion: normal flexion and e xtension Collateral ligaments: intact medially an d laterally
--- OUTSIDE RECORDS SUMMARY | 2025-09-25 11:45 | XMS_ITS ---
Author Organization [facility] Address [address] [facility] [address] [place] [phone] Care Team Providers Care Lard Tub Washer Name Role Phone Harjit Keene Primary Care Provider [phone] Cara Cutler [phone] Allergies Allergen (clinical drug ingredient) Drug/Non Drug Allergy documented on EMR Reaction Allergy Type Onset Date Status sulfadiazine sulfADIAZINE rash Drug Allergy A ctive Substance with penicillin structure and antibacterial mechanism of action (substance) Penicillins Unknown Drug Allergy Active REASON FOR VISIT Check Up w/ Refills [...] day; Duration: 90 days Active Vital Signs Weight 231 lbs 09/25/2025 Blood pressure systolic 136 mm Hg 09/25/20 25 Blood pressure diastolic 80 mm Hg 025 Heart Rate 87 /min 09/25/2025 Height 65 in 09/25/2025 BMI 38.44 kg/m2 09/25/2025 Encounters Encounter Location Date Provider Diagnosis [facility] [address] [facility] [address] [place], [place] [phone] 09/25/2025 Cara Cutler Essential hypertensi on I10 [...] Orally Once a day; Duration: 90 days Pending Test Test Name Order Date H-TSH 09/25/2025 H-CBC 09/25/2025 H-VITAMIN D 09/25/2025 H-Lipid Panel 09/25/2025 H-CMP 09/25/2025 H-VITAMIN B12 09/25/2025 Progress Notes * APURVA ZHOU NDOB: 6 (50 yo F)Acc No.[id number]:09/25/2025 Progress Notes Patient: APURVA EUGENE Provider: MARJ Alcazar :1975 A ge:50 Y S ex:Female Date:09/25/2025 Address:[address] [place] [address], [place], [id number] Pcp:Harjit Keene Subjective: * Chief Complaints: * [...] Temp: 97.6, BP: 136/80, HR: 87, Nurse: ector, Ht: 65, BMI:38.44. Assessment: * Assessment: 1. E ssential hypertension - I10 (Primary) 2 . V itamin D deficiency - E55.9 3 . V itamin B12 deficiency - E53.8 4 . D epression with anxiety - F41.8 5 . S easonal allergic rhinitis, unspecified trigger - J30.2 6 . M ixed hyperlipidemia - E78.2 7 . T achycardia - R00.0 ? Plan: * Treatment: 2. V itamin D deficiency L AB: H-VITAMIN D 3. V itamin B12 deficiency L AB: H-VITAMIN B12 4. D epression with anxiety Refill Venlafaxine HCl ER Capsule Extended Release 24 Hour, 75 MG, 1 capsule with food, Orally, Once a day, 90 days, 90 Capsule, Refills 3. 5. S easonal allergic rhinitis, unspecified trigger Refill Levocetirizine Dihydrochloride Tablet, 5 MG, 1 tablet in the evening, Orally, Once a day, 90 days, 90 Tablet, Refills 3; R efill Montelukast Sodium Tablet, 10 MG, take 1 tablet by mouth once daily for 90 days, Orally, once daily, 90 days, 90 Tablet, Refills 3; R efill Flonase Allergy Relief Suspension, 50 MCG/ACT, 1 spray in each nostril, Nasally, Once a day, 1, Refills 11. ? 6. M ixed hyperlipidemia Refill Atorvastatin Calcium Tablet, 10 MG, take 1 tablet by mouth once daily for 90 days, Orally, once daily, 90 days, 90 Tablet, Refills 3. L AB: H-Lipid Panel * Images: Billing Information: * Visit Code: * Procedure Codes: * Electronic signature of MARJ Feldman on 09/26/2025 at 08:12 AM EST Sign off status: Pending * Provider: MARJ Alcazar Date: 11/25/2024 Generated for Tila saldaña/Yola/Philransmitting on: 11/26/2024 08:12 AM EST History and Physical Notes * HPI (History of Present Illness) Category Sub-Category Detail Notes Category Not es HPI Patient is here today for checku p and refills. Pt is not fasting. Pt states she needs refills on her meds. Pt states she is doing good with no new concerns today
--- OUTSIDE RECORDS SUMMARY | 2025-09-26 08:12 | XMS_ITS | Patient Health Record ---
Author Organization [facility] Address [address] [place] [phone] Care Team Providers Care Aerosol Line Operator Name Role Phone Harjit Keene Primary Care Provider [phone] Cara Cutler [phone] Allergies Allergen (clinical drug ingredient) Drug/Non Drug Allergy documented on EMR Reaction Allergy Type Onset Date Status sulfadiazine sulfADIAZINE rash Drug Allergy A ctive Substance with penicillin structure and antibacterial mechanism of action (substance) Penicillins Unknown Drug Allergy Active Reason For Referral No Information Medications Medication SIG (Take, Route, Frequency, Duration) Notes Start Date End Date Status Vitamin D3 50 MCG (1999 UT) 1 tab(s) ora lly once a day; Duration: 30 day(s) Active Levocetirizine Dihydrochloride 5 MG [...] e a day; Duration: 30 day(s) Active Metoprolol Succinate 100 MG 1 capsule Or ally Once a day; Duration: 90 days Active Venlafaxine HCl ER 75 MG 1 capsule with food Orally Once a day; Duration: 90 days Active Flonase Allergy Relief 50 MCG/ACT 1 spray in each nostril Nasally Once a day Active Lysine 1000 MG 1 tab(s) orally once a day; Duration: 30 day(s) Active Atorvastatin Calcium 10 MG take 1 tablet by mouth once daily for 90 days Orally once daily; Duration: 90 days Active Immunizations Vaccine Route Administration Date Status Comme nts Hepatitis A (adult) IM Intramuscular 10/24/2018 Administer ed Hepatitis A (adult) IM Intramuscular 05/02/2019 Administer ed Problems Problem Type SNOMED Code ICD Code Onset Dates Problem Status W/U Status Risk Notes Problem Sinusitis (23239836) Sinusitis (J32.9) Active confirmed Problem Vitamin D deficiency (01170832) Vitamin D deficiency (E55.9) Active confirmed Problem Essential hypertension (41261180) Essential hypertension (I10) Active confirmed Problem Mixed anxiety and depressive disorder (618354085) Depression with anxiety (F41.8) Active confirmed Problem Mixed hyperlipidemia (956690081) Mixed hyperlipidemia (E78.2) Active confirmed Problem Seasonal allergic rhinitis (534727157) Seasonal allergic rhinitis, unspecified trigger (J30.2) Active confirmed Problem Chronic otitis media of left ear with effusion (H65.492) Active confirmed Problem Essential hypertension (76753795) Hypertension, unspecified type (I10) Active confirmed Problem Hyperlipidemia (20522082) Other hyperlipidemia (E78.49) Active confirmed Vital Signs Heart Rate 87 /min 09/25/2025 Blood pressure diastolic 80 mm Hg 09/25/2025 Height 65 in 09/25/2025 Blood pressure systolic 136 mm Hg 09/25/2025 Weight 231 lbs 09/25/2025 BMI 38.44 kg/m2 09/25/2025 Encounters Encounter Location Date Provider Diagnosis [place] [address] [facility] [address] [place] [phone] 09/25/2025 Cara Cutler Essential hypertensi on I10 ; Vitamin D deficiency E55.9 ; Vitamin B12 deficiency E53.8 ; Depression with anxiety F41.8 ; Seasonal allergic rhinitis, unspecified trigger J30.2 ; Mixed hyperlipidemia E78.2 and Tachycardia R00.0 [facility] [address] [facility] [address] [place] [phone] 09/27/2024 Cara Cutler Assessments Encounter Date Diagnosis (ICD Code) Assessment Notes Treatment Notes Treatment Clinical Notes Section Notes 09/25/2025 Vitamin D deficiency (ICD-10 - E55.9) 09/25/2025 Essential hypertension (ICD-10 - I10) 09/25/2025 Vitamin B12 deficiency (ICD-10 - E53.8) 09/25/2025 Depression with anxiety (ICD-10 - F41.8) 09/25/2025 Seasonal allergic rhinitis, unspecified trigger (ICD-10 - J30.2) 09/25/2025 Mixed hyperlipidemia (ICD-10 - E78.2) 09/25/2025 Tachycardia (ICD-10 - R00.0) Plan Of Treatment Pending Test Test Name Order Date VITAMIN D, 25-HYDROXY 03/18/2021 H-TSH 09/25/2025 H-CBC 09/25/2025 H-VITAMIN D 09/25/2025 H-Lipid Panel 09/25/2025 H-CMP 09/25/2025 H-VITAMIN B12 09/25/2025 Insurance Providers Payer Name Payer Address Payer Phone Subscriber Number Group Number Insured Name Patient Relationship to Insured Coverage Start Date Coverage End Date [employer] [facility] [address] [place], [place] [id number] APURVA ZHOU Self - patient is the insured Medications Administered Medication Instructions Date of Administration Dosage Notes Dexamethasone 08/15/2008 4 mg Medical (General) History Surgical History Surgery Date(Month/Year) Total hysterectomy 12/17/2021 Hospitalization History Reason Date(Month/Year)
[2025-09-26 08:36] LABS: Hematocrit 38.2 % (37.0-47.0); Hemoglobin 13.0 g/dL (12.2-16.2); Immature Granulocytes % 0.4 %; Mean Corpuscular HGB Conc 34.0 g/dL (31.8-35.4); Mean Corpuscular Hemoglobin 30.9 pg (27.0-31.2); Mean Corpuscular Volume 90.7 fl (81-99); Nucleated Red Blood Cells % 0 %; Platelet Count 285 K/mm3 (142-424); Red Blood Count 4.21 M/mm3 (4.20-5.40); Red Cell Distribution Width-SD 40.9 fL; White Blood Count 9.6 K/mm3 (4.8-10.8)
[2025-09-26 09:02] LABS: Alanine Aminotransferase 27 U/L (12-78); Albumin Level 4.5 g/dl (3.5-5.0); Albumin/Globulin Ratio 1.8 (1.1-1.8); Alkaline Phosphatase 83 U/L (38-126); Anion Gap 9.1 mEq/L (5-15); Aspartate Amino Transferase 28 U/L (14-36); Bilirubin,Total 0.6 mg/dl (0.2-1.3); Blood Urea Nitrogen 10 mg/dl (7-17); Calcium 9.4 mg/dl (8.4-10.2); Carbon Dioxide 27 mmol/L (22.0-30.0); Chloride 102 mmol/L (98-107); Cholesterol 137 mg/dl (140-200); Creatinine,Serum 0.60 mg/dl (0.52-1.04); Estimated Glomerular Filt Rate 106 ml/min (>60); GFR (African American) 129 ML/MIN (>60); Globulin 2.5 g/dL (1.3-3.2); Glucose 98 mg/dl (74-100); HDL Cholesterol 46 mg/dl (40-60); Potassium 4.1 mmoL/L (3.5-5.1); Sodium 134 mmol/L (136-145); Total Protein,Serum 7.0 g/dl (6.3-8.2); Triglycerides 198 mg/dl (30-150)
[2025-09-26 09:19] LABS: 25-OH Vitamin D, Total 48.2 ng/mL (30-100)
[2025-09-26 09:33] LABS: Thyroid Stimulating Hormone 1.39 uIU/mL (0.465-4.68)
[2025-09-26 09:52] LABS: Vitamin B12 834 pg/mL (239-931)
== END 2025-09-26 23:59 | disposition home or self-care (01) ==
LOC: LAB 08:09
PROVIDERS: PCP Family Medicine; Visit Provider Physician Assistant
DX: E55.9 Vitamin D deficiency, unspecified (principal); E78.2 Mixed hyperlipidemia; E53.8 Deficiency of other specified B group vitamins; I10 Essential (primary) hypertension
CPT/HCPCS: 36415; 80053; 80061; 82306; 82607; 84443; 85025

== ENCOUNTER 2025-10-28 14:56 | Outpatient (CLI) | payer OTHER, SELFPAY ==
--- OUTSIDE RECORDS SUMMARY | 2024-09-20 08:15 | XMS_ITS ---
Author Organization [facility] Address [address] [facility] [address] [place] [id number] Care Team Providers Care Hoop Maker Name Role Phone Harjit Keene Primary Care Provider [phone] JoseCara brown Unavailable [phone] Allergies Allergen (clinical drug ingredient) Drug/Non Drug Allergy documented on EMR Reaction Allergy Type Onset Date Status sulfadiazine sulfADIAZINE rash Drug Allergy A ctive Substance with penicillin structure and antibacterial mechanism of action (substance) Penicillins Unknown Drug Allergy Active Results Component Value Reference Range Notes CBC Fingerstick (in house) Reviewed date:09/20/2024 02:04:32 PM Interpretation: Performing Lab: Notes/Report: wbc 8.4 3.5 - 10 lym 11.7 15 - 50 mid 3.2 2 - 15 gran 85.1 35 - 80 rbc 5.17 3.5 - 5.5 hgb 15.3 11.5 - 16.5 hct 47.4 35 - 55 mcv 91.6 75 - 100 mch 29.6 25 - 35 mchc 32.3 31 - 38 plat 199 100 - 400 H-TSH Reviewed date:09/27/2024 01:28:42 PM Interpretation:Normal Performing Lab: Notes/Report: TSH 1.61 0.465-4.68 uIU/mL H-VITAMIN D Reviewed date:09/27/2024 01:28:42 PM Interpretation:46 Performing Lab: Notes/Report: TVITD 46.0 30-100 ng/mL Deficient <20 ng/mL Insufficient 20-30 ng/mL Sufficient 30-100 ng/mL Potential Toxicity >100 ng/mL H-Lipid Panel Reviewed date:09/27/2024 01:28:42 PM Interpretation:Normal Performing Lab: Notes/Report: Patient Fasting? Y TRIG 115 30-150 mg/dl CHOL 173 140-200 mg/dl DLDL 106.71 100-129 mg/dL VLDL 23 0-40 mg/dL HDL 57 40-60 mg/dl CHLHDL 3.0 1-3.5 H-CMP Reviewed date:09/27/2024 01:28:42 PM Interpretation:gluc 109 Performing Lab: Notes/Report: NA 139 136-145 mmol/L K 4.3 3.5-5.1 mmoL/L CL 104 98-107 mmol/L CO2 26 22.0-30.0 mmol/L GAP 13.3 5-15 mEq/L BUN 12 7-17 mg/dl CREATT 0.60 0.52-1.04 mg/dl GFRAA 129 >60 ML/MIN EGFR 107 >60 ml/min GLU 109 74-100 mg/dl CA 9.3 8.4-10.2 mg/dl BILIT 0.5 0.2-1.3 mg/dl AST 26 14-36 U/L ALT 32 12-78 U/L TP 7.1 6.3-8.2 g/dl ALB 4.4 3.5-5.0 g/dl GLOB 2.7 1.3-3.2 g/dL AGRATIO 1.6 1.1-1.8 ALP 76 38-126 U/L H-VITAMIN B12 Reviewed date:09/27/2024 01:28:42 PM Interpretation:979 Performing Lab: Notes/Report: VITB12 979 239-931 pg/mL REASON FOR VISIT refills Medications Medication SIG (Take, Route, Frequency, Duration) Notes Start Date End Date Status Lysine 1000 MG 1 tab(s) orally once a day; Duration: 30 day(s) Active Medrol 4 MG as directed orally daily; Duration: 6 days 09/20/2024 Active Atorvastatin Calcium 10 MG take 1 tablet by mouth once daily for 90 days Orally once daily; Duration: 90 days Active Flonase Allergy Relief 50 MCG/ACT 1 spray in each nostril Nasally Once a day Active Vitamin B 12 500 MCG 1 tab(s) orally onc e a day; Duration: 30 day(s) Active Montelukast Sodium 10 MG take 1 tablet b y mouth once daily for 90 days Orally once daily; Duration: 90 days Active Levocetirizine Dihydrochloride 5 MG 1 tablet in the evening Orally Once a day; Duration: 90 days Active Vitamin C 500 MG 1 tab(s) orally once a day; Duration: 30 day(s) Active Vitamin D3 50 MCG (1999 UT) 1 tab(s) ora lly once a day; Duration: 30 day(s) Active Cefdinir 300 MG 1 cap(s) Orally Two times a day; Duration: 10 day(s) 09/20/2024 Active Venlafaxine HCl ER 75 MG 1 capsule with food Orally Once a day; Duration: 90 days Active Metoprolol Succinate 100 MG 1 capsule Or ally Once a day; Duration: 90 days Active Benzonatate 200 MG 1 capsule Orally Thr ee times a day 09/20/2024 Active Vital Signs Blood pressure systolic 140 mm Hg 09/20/20 24 Blood pressure diastolic 100 mm Hg 024 Heart Rate 109 /min 09/20/2024 Height 65 in 09/20/2024 Weight 229.2 lbs 09/20/2024 BMI 38.14 kg/m2 09/20/2024 Encounters Encounter Location Date Provider Diagnosis [facility] [address], [place] [id number] 09/20/2024 Cara Cutler Essential hypertensi on I10 ; Vitamin D deficiency E55.9 ; Vitamin B12 deficiency E53.8 ; Depression with anxiety F41.8 ; Seasonal allergic rhinitis, unspecified trigger J30.2 ; Mixed hyperlipidemia E78.2 ; Tachycardia R00.0 ; Acute URI J06.9 and Pain, joint, knee, right M25.561 Assessments Encounter Date Diagnosis (ICD Code) Assessment Notes Treatment Notes Treatment Clinical Notes Section Notes 09/20/2024 Essential hypertension (ICD-10 - I10) 09/20/2024 Vitamin D deficiency (ICD-10 - E55.9) 09/20/2024 Vitamin B12 deficiency (ICD-10 - E53.8) 09/20/2024 Depression with anxiety (ICD-10 - F41.8) 09/20/2024 Seasonal allergic rhinitis, unspecified trigger (ICD-10 - J30.2) 09/20/2024 Mixed hyperlipidemia (ICD-10 - E78.2) 09/20/2024 Tachycardia (ICD-10 - R00.0) 09/20/2024 Acute URI (ICD-10 - J06.9) 09/20/2024 Pain, joint, knee, right (ICD-10 - M25.561) Plan Of Treatment Medication Medication Name Sig Start Date Stop Date Notes Medrol 4 MG as directed orally d aily; Duration: 6 days 09/20/2024 Atorvastatin Calcium 10 MG take 1 tablet by mouth once daily for 90 days Orally once daily; Duration: 90 days Flonase Allergy Relief 50 MCG/ACT 1 spra y in each nostril Nasally Once a day Montelukast Sodium 10 MG take 1 tablet b y mouth once daily for 90 days Orally once daily; Duration: 90 days Levocetirizine Dihydrochlori de 5 MG 1 tablet in the evening Orally Once a day; Duration: 90 days Cefdinir 300 MG 1 cap(s) Orally Two times a day; Duration: 10 day(s) 09/20/2024 Venlafaxine HCl ER 75 MG 1 capsule with food Orally Once a day; Duration: 90 days Metoprolol Succinate 100 MG 1 capsule Or ally Once a day; Duration: 90 days Benzonatate 200 MG 1 capsule Orally Thr ee times a day 09/20/2024 Next Appt Details Follow Up: via phone to repo rt test results, Reason: Progress Notes * APURVA ZHOU NDOB: [birth year] (50 yo F)Acc No.[id number]:09/20/2024 Progress Notes Patient: APURVA EUGENE N Provider: MARJ Alcazar :1975 A ge:49 Y S ex:Female Date:09/20/2024 Address:[address] [place], [place] [id number] [address] [id number] Pcp:Harjit Keene Subjective: * Chief Complaints: * 1 . Refills. * HPI: H PI: 49 year old female presents with c/o Patient is here today for? Pt is here today for refills. E NT/respiratory: c/o sore throat. c/o cough. c/o nasal congestion.? K nee/Bashir: c/o knee pain r ight side. * ROS: D ERMATOLOGY: no R norma. n o H ayden. G ASTROENTEROLOGY: no V omiting. n o D iarrhea. U ROLOGY: no D ifficulty urinating. n o B lood in urine. * Medical History: M edical History Verified. * Surgical History: C -Section , Total hysterectomy 12/17/2021. * Family History: F ather: alive. M other: alive. 1 daughter(s) . . * Social History: C URRENT TOBACCO USE S moking Status: Patient does NOT smoke. C affeine: yes, frequency:. Home smoke detector use: yes. Marital Status: . Past smoking status: no. * Medications: T aking Flonase Allergy Relief 50 MCG/ACT Suspension 1 spray in each nostril Nasally Once a day , Taking Metoprolol Succinate 100 MG Capsule ER 24 Hour Sprinkle 1 capsule Orally Once a day , Taking Levocetirizine Dihydrochloride 5 MG Tablet 1 tablet in the evening Orally Once a day , Taking Vitamin D3 50 MCG (2000 UT) Tablet 1 tab(s) orally once a day , Taking Vitamin C 500 MG Tablet 1 tab(s) orally once a day , Taking Vitamin B 12 500 MCG Tablet 1 tab(s) orally once a day , Taking Lysine 1000 MG Tablet 1 tab(s) orally once a day , Taking Montelukast Sodium 10 MG Tablet Take 1 tablet by mouth once daily for 90 days , Taking Atorvastatin Calcium 10 MG Tablet Take 1 tablet by mouth once daily for 90 days , Taking Venlafaxine HCl ER 75 MG Capsule Extended Release 24 Hour 1 capsule with food Orally Once a day , Medication List reviewed and reconciled with the patient * Allergies: P enicillins, sulfADIAZINE: rash - Allergy. Objective: * Vitals: W t:229.2, Temp:98.8, BP:140/100, HR:109, O2 Sat:95% on RA, Nurse:JOSE, Ht: 65, Repeat BP:118/88, BMI:38.14. * Examination: G eneral Examination: General Appearance: N AD. H EENT: sclera and conjunctiva clear, PERRLA, TM's normal, translucent, nose congested. O ral cavity: minimal erythema, PND present. N bernabe: s upple, no lymphadenopathy. C hest: n ormal shape and expansion. H eart: R SR. L ungs: c lear to auscultation. A bdomen: bowel sounds present, soft and nontender, no organomegaly or masses, no guarding or rigidity. N eurologic Exam: I ntact, gait normal. S kin: n ormal, no rash. P eripheral pulses: n ormal (2+) bilaterally. E xtremities: n o leg edema. K nee / Bashir: Knee: right. I nspection: m ild edema along the medial jointline, no erythema. P alpation: tenderness on medial jointline. C ollateral ligaments: intact medially and laterally. R kimi of motion: n ormal flexion and extension. M cmurray: n egative. D rawer test: n egative. P atellofemoral joint: crepitations with movement. Assessment: * Assessment: 1. E ssential hypertension - I10 (Primary) 2 . V itamin D deficiency - E55.9 3 . V itamin B12 deficiency - E53.8 4 . D epression with anxiety - F41.8 5 . S easonal allergic rhinitis, unspecified trigger - J30.2 6 . M ixed hyperlipidemia - E78.2 7 . T achycardia - R00.0 ? 8 . A cute URI - J06.9 9 . P ain, joint, knee, right - M25.561? Plan: * Treatment: Value Reference Range T SH 1.61 0.465-4.68 - uIU/mL * Cara Cutler S 09/27/2024 1 :28:36 PM > see TE ?LAB: H-CMP (Collection Date & Time - 09/22/2024 08:55 AM)?gluc 109* Value Reference Range N A 139 136-145 - mmol/L * K 4.3 3.5-5.1 - mmoL/L * C L 104 98-107 - mmol/L * C O2 26 22.0-30.0 - mmol/L * G AP 13.3 5-15 - mEq/L * B UN 12 7-17 - mg/dl * C REATT 0.60 0.52-1.04 - mg/dl * G FRAA 129 >60 - ML/MIN * E GFR 107 >60 - ml/min * G MAREN 109 H 74-100 - mg/dl * C A 9.3 8.4-10.2 - mg/dl * B ILIT 0.5 0.2-1.3 - mg/dl * A ST 26 14-36 - U/L * A LT 32 12-78 - U/L * T P 7.1 6.3-8.2 - g/dl * A LB 4.4 3.5-5.0 - g/dl * G LOB 2.7 1.3-3.2 - g/dL * A GRATIO 1.6 1.1-1.8 - * A LP 76 38-126 - U/L * Cara Cutler 09/27/2024 1 :28:36 PM > see TE 2.?Vitamin D deficiency?LAB: H-VITAMIN D (Collection Date & Time - 09/22/2024 08:55 AM)?46* Value Reference Range T VITD 46.0 30-100 - ng/mL * Cara Cutler 09/27/2024 1 :28:36 PM > see TE 3.?Vitamin B12 deficiency?LAB: H-VITAMIN B12 (Collection Date & Time - 09/22/2024 08:55 AM)?979* Value Reference Range V ITB12 979 H 239-931 - pg/mL * Cara Cutler 09/27/2024 1 :28:36 PM > see TE 4.?Depression with anxiety? Refill Venlafaxine HCl ER Capsule Extended Release 24 Hour, 75 MG, 1 capsule with food, Orally, Once a day, 90 days, 90 Capsule, Refills 3.??5.?Seasonal allergic rhinitis, unspecified trigger? Refill Levocetirizine Dihydrochloride Tablet, 5 MG, 1 tablet in the evening, Orally, Once a day, 90days, 90 Tablet, Refills 3;?Refill Montelukast Sodium Tablet, 10 MG, take 1 tablet by mouth once daily for 90 days, Orally, once daily, 90 days, 90 Tablet, Refills 3;?Refill Flonase AllergyRelief Suspension, 50 MCG/ACT, 1 spray in each nostril, Nasally, Once a day, 1, Refills 11.? 6.?Mixed hyperlipidemia? Refill Atorvastatin Calcium Tablet, 10 MG, take 1 tablet by mouth once daily for 90 days, Orally, once daily, 90 days, 90 Tablet, Refills 3.?LAB: H-Lipid Panel (Collection Date & Time - 09/22/2024 08:55 AM)?Normal* Value Reference Range T RIG 115 30-150 - mg/dl * C HOL 173 140-200 - mg/dl * D LDL 106.71 100-129 - mg/dL * V LDL 23 0-40 - mg/dL * H DL 57 40-60 - mg/dl * C HLHDL 3.0 1-3.5 - * Cara Cutler 09/27/2024 1 :28:36 PM > see TE 7.?Acute URI? Start Benzonatate Capsule, 200 MG, 1 capsule, Orally, Three times a day, 30, Refills 1;?Start Cefdinir Capsule, 300 MG, 1 cap(s), Orally, Two times a day, 10 day(s), 20 Capsule, Refills 0.?LAB: CBC Fingerstick (in house) (Collection Date & Time - 09/20/2024)* Value Reference Range w bc 8.4 3.5 - 10 * l ym 11.7 15 - 50 * m id 3.2 2 - 15 * g ran 85.1 35 - 80 * r bc 5.17 3.5 - 5.5 * h gb 15.3 11.5 - 16.5 * h ct 47.4 35 - 55 * m cv 91.6 75 - 100 * m ch 29.6 25 - 35 * m chc 32.3 31 - 38 * p lat 199 100 - 400 * Tennille Rubio 09/20/2024 1:38 :28 PM > , Provider reviewed results while patient in office.Cara Cutler 09/20/2024 2:04:29 PM > 8.?Pain, joint, knee, right? Start Medrol Tablet Therapy Pack, 4 MG, as directed, orally, daily, 6 days, 1, Refills 0.? * Procedure Codes: 9 [address] [place], [address] CAPILLARY BLOOD DRAW, 12561 CBC WITH AUTO DIFF * Follow Up: v ia phone to report test results * Images: Billing Information: * Visit Code: 28730 Office Visit, Est Pt., Level 4. * Procedure Codes: [address] [place]. [address] CAPILLARY BLOOD DRAW. 80725 CBC WITH AUTO DIFF. * Electronic signature of MARJ Feldman on 10/28/2025 at 02:59 PM EST Sign off status: Pending * Provider: MARJ Alcazar Date: 11/20/2023 Generated for Printi ng/Faxing/eTransmitting on: 12/29/2024 02:59 PM EST History and Physical Notes * HPI (History of Present Illness) Category Sub-Category Detail Notes Category Not es ENT/respiratory sore throat cough nasal congestion Knee/Bashir knee pain right side HPI Patient is here today for Pt is here toda y for refills Examination Category Sub-Category Detail Notes Category Not es General Examination HEENT: sclera and c onjunctiva clear, PERRLA, TM's normal, translucent, nose congested Heart: RSR Lungs: clear to auscultatio n Abdomen: bowel sounds present , soft and nontender, no organomegaly or masses, no guarding or rigidity Extremities: no leg edema General Appearance: NAD Skin: normal, no rash Neurologic Exam: Intact, gait normal Neck: supple, no lymphaden opathy Oral cavity: minimal erythema, PN D present Peripheral pulses: normal (2+) bilatera lly Chest: normal shape and exp ansion Knee / Bashir [facility]: negative Drawer test: negative Patellofemoral joint: crepitations with movement Palpation: tenderness on medial jointline Knee: right Inspection: mild edema along the medial jointline, no erythema Range of motion: normal flexion and e xtension Collateral ligaments: intact medially an d laterally
--- OUTSIDE RECORDS SUMMARY | 2025-09-25 11:45 | XMS_ITS ---
Author Organization [facility] Address [address] [facility] [address] [place] [phone] Care Team Providers Care Minister Of Religion Name Role Phone Harjit Keene Primary Care Provider [phone] JoseCara brown Danielle [phone] Allergies Allergen (clinical drug ingredient) Drug/Non Drug Allergy documented on EMR Reaction Allergy Type Onset Date Status sulfadiazine sulfADIAZINE rash Drug Allergy A ctive Substance with penicillin structure and antibacterial mechanism of action (substance) Penicillins Unknown Drug Allergy Active Results Component Value Reference Range Notes H-TSH Reviewed date:09/27/2025 12:26:00 PM Interpretation:Normal Performing Lab: Notes/Report: TSH 1.39 0.465-4.68 uIU/mL H-CBC Reviewed date:09/27/2025 12:26:00 PM Interpretation:Normal Performing Lab: Notes/Report: WBC 9.6 4.8-10.8 K/mm3 RBC 4.21 4.20-5.40 M/mm3 HGB 13.0 12.2-16.2 g/dL HCT 38.2 37.0-47.0 % MCV 90.7 81-99 fl MCH 30.9 27.0-31.2 pg MCHC 34.0 31.8-35.4 g/dL RDW-SD 40.9 RDW 12.5 11.5-17.5 % PLT 285 142-424 K/mm3 MPV 9.3 7.4-10.4 fl NE% 64.2 37.0-80.0 % LY% 28.3 10-50 % MO% 5.6 1.7-9.3 % EO% 1.2 0.1-12.0 % BA% 0.3 0.1-2.0 % NRBC% 0 IG% 0.4 NE# 6.2 1.8-7.8 K/mm3 LY# 2.7 0.7-4.5 K/mm3 MO# 0.5 0.1-1.0 K/mm3 EO# 0.1 0.0-0.4 Kmm3 BA# 0.0 0-0.2 K/mm3 NRBC# 0 IG# 0.04 H-VITAMIN D Reviewed date:09/27/2025 12:26:00 PM Interpretation:Normal Performing Lab: Notes/Report: TVITD 48.2 30-100 ng/mL Deficient <20 ng/mL Insufficient 20-30 ng/mL Sufficient 30-100 ng/mL Potential Toxicity >100 ng/mL H-Lipid Panel Reviewed date:09/27/2025 12:26:00 PM Interpretation:Trigs 198, Chol 137, DLDL 82.63 Performing Lab: Notes/Report: Patient Fasting? Y TRIG 198 30-150 mg/dl CHOL 137 140-200 mg/dl DLDL 82.63 100-129 mg/dL VLDL 40 0-40 mg/dL HDL 46 40-60 mg/dl CHLHDL 3.0 1-3.5 H-CMP Reviewed date:09/27/2025 12:26:00 PM Interpretation:NA 134 Performing Lab: Notes/Report: NA 134 136-145 mmol/L K 4.1 3.5-5.1 mmoL/L CL 102 98-107 mmol/L CO2 27 22.0-30.0 mmol/L GAP 9.1 5-15 mEq/L BUN 10 7-17 mg/dl CREATT 0.60 0.52-1.04 mg/dl GFRAA 129 >60 ML/MIN EGFR 106 >60 ml/min GLU 98 74-100 mg/dl CA 9.4 8.4-10.2 mg/dl BILIT 0.6 0.2-1.3 mg/dl AST 28 14-36 U/L ALT 27 12-78 U/L TP 7.0 6.3-8.2 g/dl ALB 4.5 3.5-5.0 g/dl GLOB 2.5 1.3-3.2 g/dL AGRATIO 1.8 1.1-1.8 ALP 83 38-126 U/L H-VITAMIN B12 Reviewed date:09/27/2025 12:26:00 PM Interpretation:Normal Performing Lab: Notes/Report: VITB12 834 239-931 pg/mL REASON FOR VISIT Check Up w/ Refills Medications Medication SIG (Take, Route, Frequency, Duration) Notes Start Date End Date Status Lysine 1000 MG 1 tab(s) orally once a day; Duration: 30 day(s) Active Atorvastatin Calcium 10 MG take 1 tablet by mouth once daily for 90 days Orally once daily; Duration: 90 days Active Vitamin D3 50 MCG (2000 UT) 1 tab(s) ora lly once a day; Duration: 30 day(s) Active Vitamin C 500 MG 1 tab(s) orally once a day; Duration: 30 day(s) Active Montelukast Sodium 10 MG take 1 tablet b y mouth once daily for 90 days Orally once daily; Duration: 90 days Active Vitamin B 12 500 MCG 1 tab(s) orally onc e a day; Duration: 30 day(s) Active Flonase Allergy Relief 50 MCG/ACT 1 spray in each nostril Nasally Once a day Active Levocetirizine Dihydrochloride 5 MG 1 tablet in the evening Orally Once a day; Duration: 90 days Active Metoprolol Succinate 100 MG 1 capsule Or ally Once a day; Duration: 90 days Active Venlafaxine HCl ER 75 MG 1 capsule with food Orally Once a day; Duration: 90 days Active Vital Signs Blood pressure systolic 136 mm Hg 09/25/20 25 Blood pressure diastolic 80 mm Hg 025 Heart Rate 87 /min 09/25/2025 Height 65 in 09/25/2025 Weight 231 lbs 09/25/2025 BMI 38.44 kg/m2 09/25/2025 Encounters Encounter Location Date Provider Diagnosis [facility] [address] [place], [place] [phone] 09/25/2025 Cara Cutler Essential hypertensi on I10 ; Vitamin D deficiency E55.9 ; Vitamin B12 deficiency E53.8 ; Depression with anxiety F41.8 ; Seasonal allergic rhinitis, unspecified trigger J30.2 ; Mixed hyperlipidemia E78.2 and Tachycardia R00.0 Assessments Encounter Date Diagnosis (ICD Code) Assessment Notes Treatment Notes Treatment Clinical Notes Section Notes 09/25/2025 Essential hypertension (ICD-10 - I10) 09/25/2025 Vitamin D deficiency (ICD-10 - E55.9) 09/25/2025 Vitamin B12 deficiency (ICD-10 - E53.8) 09/25/2025 Depression with anxiety (ICD-10 - F41.8) 09/25/2025 Seasonal allergic rhinitis, unspecified trigger (ICD-10 - J30.2) 09/25/2025 Mixed hyperlipidemia (ICD-10 - E78.2) 09/25/2025 Tachycardia (ICD-10 - R00.0) Plan Of Treatment Medication Medication Name Sig Start Date Stop Date Notes Atorvastatin Calcium 10 MG take 1 tablet by mouth once daily for 90 days Orally once daily; Duration: 90 days Montelukast Sodium 10 MG take 1 tablet b y mouth once daily for 90 days Orally once daily; Duration: 90 days Flonase Allergy Relief 50 MCG/ACT 1 spra y in each nostril Nasally Once a day Levocetirizine Dihydrochlori de 5 MG 1 tablet in the evening Orally Once a day; Duration: 90 days Metoprolol Succinate 100 MG 1 capsule Or ally Once a day; Duration: 90 days Venlafaxine HCl ER 75 MG 1 capsule with food Orally Once a day; Duration: 90 days Next Appt Details Follow Up: via phone to repo rt test results, Reason: Progress Notes * APURVA ZHOU NDOB: [birth year] (50 yo F)Acc No.[id number]:09/25/2025 Progress Notes Patient: APURVA EUGENE N Provider: MARJ Alcazar :1975 A ge:50 Y S ex:Female Date:09/25/2025 Address:[address], [id number] Pcp:Harjit Keene Subjective: * Chief Complaints: * 1 . Check Up w/ Refills. * HPI: H PI: Patient is here today for c heckup and refills. Pt is not fasting. Pt states she needs refills on her meds. Pt states she is doing good with no new concerns today. * ROS: D ERMATOLOGY: no R norma. n o H ayden. G ASTROENTEROLOGY: no N ausea. n o V omiting. n o D iarrhea.? U ROLOGY: no D ifficulty urinating. n [...] smoking status: no. * Medications: T aking Vitamin D3 50 MCG (2000 UT) Tablet 1 tab(s) orally once a day , Taking Vitamin C 500 MG Tablet 1 tab(s) orally once a day , Taking Vitamin B 12 500 MCG Tablet 1 tab(s) orally once a day , Taking Lysine 1000 MG Tablet 1 tab(s) orally once a day , Taking Metoprolol Succinate 100 MG Capsule ER 24 Hour Sprinkle 1 capsule Orally Once a day , Taking Venlafaxine HCl ER 75 MG Capsule Extended Release 24 Hour 1 capsule with food Orally Once a day , Taking Levocetirizine Dihydrochloride 5 MG Tablet 1 tablet in the evening Orally Once a day , Taking Montelukast Sodium 10 MG Tablet take 1 tablet by mouth once daily for 90 days Orally once daily , Taking Flonase Allergy Relief 50 MCG/ACT Suspension 1 spray in each nostril Nasally Once a day , Taking Atorvastatin Calcium 10 MG Tablet take 1 tablet by mouth once daily for 90 days Orally once daily , Discontinued Medrol 4 MG Tablet Therapy Pack as directed orally daily , Discontinued Benzonatate 200 MG Capsule 1 capsule Orally Three times a day , Discontinued Cefdinir 300 MG Capsule 1 cap(s) Orally Two times a day , Medication List reviewed and reconciled with the patient * Allergies: P enicillins, sulfADIAZINE: rash - Allergy. Objective: * Vitals: W t: 231, Temp: 97.6, BP: 136/80, HR: 87, Nurse: pe, Ht: 65, BMI:38.44. * Examination: G eneral Examination: General Appearance: N AD. H EENT: u nremarkable.?Oral cavity: n o lesions, mucosa moist and WNL, no erythema. N bernabe: s upple, no lymphadenopathy. C hest: n ormal shape and expansion. H eart: R SR. L ungs: c lear to auscultation. A bdomen: b owel sounds present, soft and nontender, no organomegaly or masses. N eurologic Exam: I ntact, gait normal. S kin: n ormal, no rash. P eripheral pulses: n ormal (2+) bilaterally. E xtremities: n o leg edema. ? Assessment: * Assessment: 1. E ssential hypertension - I10 (Primary) 2 . V itamin D deficiency - E55.9 3 . V itamin B12 deficiency - E53.8 4 . D epression with anxiety - F41.8 5 . S easonal allergic rhinitis, unspecified trigger - J30.2 6 . M ixed hyperlipidemia - E78.2 7 . T achycardia - R00.0 ? Plan: * Treatment: Value Reference Range T SH 1.39 0.465-4.68 - uIU/mL * Jessica Spears 09/27/2025 12 :25:52 PM EST > See phone encounter ?LAB: H-CBC (Collection Date & Time - 09/26/2025 08:21 AM)?Normal* Value Reference Range W BC 9.6 4.8-10.8 - K/mm3 * R BC 4.21 4.20-5.40 - M/mm3 * H GB 13.0 12.2-16.2 - g/dL * H CT 38.2 37.0-47.0 - % * M CV 90.7 81-99 - fl * M CH 30.9 27.0-31.2 - pg * M CHC 34.0 31.8-35.4 - g/dL * R DW 12.5 11.5-17.5 - % * P LT 285 142-424 - K/mm3 * M PV 9.3 7.4-10.4 - fl * N E% 64.2 37.0-80.0 - % * L Y% 28.3 10-50 - % * M O% 5.6 1.7-9.3 - % * E O% 1.2 0.1-12.0 - % * B A% 0.3 0.1-2.0 - % * N E# 6.2 1.8-7.8 - K/mm3 * L Y# 2.7 0.7-4.5 - K/mm3 * M O# 0.5 0.1-1.0 - K/mm3 * E O# 0.1 0.0-0.4 - Kmm3 * B A# 0.0 0-0.2 - K/mm3 * R DW-SD 40.9 - fL * N RBC% 0 - % * N RBC# 0 - 10 3/uL * I G% 0.4 - % * I G# 0.04 - 10 3uL * Jessica Spears 09/27/2025 12 :25:52 PM EST > See phone encounter ?LAB: H-CMP (Collection Date & Time - 09/26/2025 08:21 AM)?NA 134* Value Reference Range N A 134 L 136-145 - mmol/L * K 4.1 3.5-5.1 - mmoL/L * C L 102 98-107 - mmol/L * C O2 27 22.0-30.0 - mmol/L * G AP 9.1 5-15 - mEq/L * B UN 10 7-17 - mg/dl * C REATT 0.60 0.52-1.04 - mg/dl * G FRAA 129 >60 - ML/MIN * E GFR 106 >60 - ml/min * G MAREN 98 74-100 - mg/dl * C A 9.4 8.4-10.2 - mg/dl * B ILIT 0.6 0.2-1.3 - mg/dl * A ST 28 14-36 - U/L * A LT 27 12-78 - U/L * T P 7.0 6.3-8.2 - g/dl * A LB 4.5 3.5-5.0 - g/dl * G LOB 2.5 1.3-3.2 - g/dL * A GRATIO 1.8 1.1-1.8 - * A LP 83 38-126 - U/L * Jessica Spears 09/27/2025 12 :25:52 PM EST > See phone encounter 2.?Vitamin D deficiency?LAB: H-VITAMIN D (Collection Date & Time - 09/26/2025 08:21 AM)?Normal* Value Reference Range T VITD 48.2 30-100 - ng/mL * Jessica Spears 09/27/2025 12 :25:52 PM EST > See phone encounter 3.?Vitamin B12 deficiency?LAB: H-VITAMIN B12 (Collection Date & Time - 09/26/2025 08:21 AM)?Normal* Value Reference Range V ITB12 834 239-931 - pg/mL * Jessica Spears 09/27/2025 12 :25:52 PM EST > See phone encounter 4.?Depression with anxiety? Refill Venlafaxine HCl ER [...] H-Lipid Panel (Collection Date & Time - 09/26/2025 08:21 AM)?Trigs 198, Chol 137, DLDL 82.63* Value Reference Range T RIG 198 H 30-150 - mg/dl * C HOL 137 L 140-200 - mg/dl * D LDL 82.63 L 100-129 - mg/dL * V LDL 40 0-40 - mg/dL * H DL 46 40-60 - mg/dl * C HLHDL 3.0 1-3.5 - * Jessica Spears 09/27/2025 12 :25:52 PM EST > See phone encounter * Procedure Codes: 3 075F SYST BP GE 130 - 139MM HG, 3079F DIAST BP 80-89 MM HG * Follow Up: v ia phone to report test results * Images: Billing Information: * Visit Code: 04434 Office Visit, Est Pt., Level 4. * Procedure Codes: 3075F SYST BP GE 130 - 139MM HG. 3079F DIAST BP 80-89 MM HG. * Electronic signature of MARJ Feldman on 10/28/2025 at 02:59 PM EST Sign off status: Pending * Provider: MARJ Alcazar Date: 11/25/2024 Generated for Printi ng/Faalexandrag/eTransmitting on: 12/29/2024 02:59 PM EST History and Physical Notes * HPI (History of Present Illness) Category Sub-Category Detail Notes Category Not es HPI Patient is here today for checku p and refills. Pt is not fasting. Pt states she needs refills on her meds. Pt states she is doing good with no new concerns today Examination Category Sub-Category Detail Notes Category Not es General Examination HEENT: unremarkable Heart: RSR Lungs: clear to auscultatio n Abdomen: bowel sounds present , soft and nontender, no organomegaly or masses Extremities: no leg edema General Appearance: NAD Skin: normal, no rash Neurologic Exam: Intact, gait normal Neck: supple, no lymphaden opathy Oral cavity: no lesions, mucosa m oist and WNL, no erythema Peripheral pulses: normal (2+) bilatera lly Chest: normal shape and exp ansion
--- NOTE | 2025-10-28 14:58 | MM_ITS ---
PROCEDURE INFORMATION: Exam: MG Bilateral Screening 3D Mammography Exam date and time: 10/28/2025 2:56 PM Age: 50 years old Clinical indication: Screening examination. Her mother had breast cancer. TECHNIQUE: Imaging protocol: Bilateral Screening tomosynthesis and 2D mammography including computer-aided detection (CAD) when performed. COMPARISON: 1. MG MM DIG SCREENING MAMM BI W/CAD 10/09/2024 3:18 PM 2. MG MM DIG MAMM DX UNILAT RT CAD 09/02/2023 1:42 PM 3. MG MM DIG SCREENING MAMM BI W/CAD 07/27/2023 9:51 AM 4. US BREAST RT COMPLETE 09/02/2023 2:36 PM FINDINGS: MAMMOGRAPHY: Breast composition: There are scattered areas of fibroglandular density. Mass: No suspicious mass. Architectural distortion: None. Calcifications: No suspicious calcifications. Asymmetric density: None. Skin thickening: None. Axillary adenopathy: None. IMPRESSION: No mammographic evidence of malignancy. Annual screening is recommended unless otherwise clinically indicated. ASSESSMENT: BI-RADS Category 1: Negative.
--- OUTSIDE RECORDS SUMMARY | 2025-10-28 14:59 | XMS_ITS | Patient Health Record ---
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 Role Phone Harjit Keene Primary Care Provider Cara Cutler [phone] Allergies Allergen (clinical drug ingredient) Drug/Non Drug Allergy documented on EMR Reaction Allergy Type Onset Date Status sulfadiazine sulfADIAZINE rash Drug Allergy A ctive Substance with penicillin structure and antibacterial mechanism of action (substance) Penicillins Unknown Drug Allergy Active Results Component Value Reference Range Notes H-VITAMIN B12 Reviewed date:09/27/2025 12:26:00 PM Interpretation:Normal Performing Lab: Notes/Report: VITB12 834 239-931 pg/mL H-CMP Reviewed date:09/27/2025 12:26:00 PM Interpretation:NA 134 [...] AGRATIO 1.8 1.1-1.8 ALP 83 38-126 U/L H-Lipid Panel Reviewed date:09/27/2025 12:26:00 PM Interpretation:Trigs 198, Chol 137, DLDL 82.63 Performing Lab: Notes/Report: Patient Fasting? Y TRIG 198 30-150 mg/dl CHOL 137 140-200 mg/dl DLDL 82.63 100-129 mg/dL VLDL 40 0-40 mg/dL HDL 46 40-60 mg/dl CHLHDL 3.0 1-3.5 H-VITAMIN D Reviewed date:09/27/2025 12:26:00 PM Interpretation:Normal Performing Lab: Notes/Report: TVITD 48.2 30-100 ng/mL Deficient <20 ng/mL Insufficient 20-30 ng/mL Sufficient 30-100 ng/mL Potential Toxicity >100 ng/mL H-CBC Reviewed date:09/27/2025 12:26:00 PM Interpretation:Normal Performing [...] 0.0 0-0.2 K/mm3 NRBC# 0 IG# 0.04 H-TSH Reviewed date:09/27/2025 12:26:00 PM Interpretation:Normal Performing Lab: Notes/Report: TSH 1.39 0.465-4.68 uIU/mL Reason For Referral No Information Medications Medication [...] Status W/U Status Risk Notes Problem Sinusitis (08300488) Sinusitis (J32.9) Active confirmed Problem Vitamin D deficiency (88635874) Vitamin D deficiency (E55.9) Active confirmed Problem Essential hypertension (91621794) Essential hypertension (I10) Active confirmed Problem Mixed anxiety and depressive disorder (669787974) Depression with anxiety (F41.8) Active confirmed Problem Mixed hyperlipidemia (701012448) Mixed hyperlipidemia (E78.2) Active confirmed Problem Seasonal allergic rhinitis (806734789) Seasonal allergic rhinitis, unspecified trigger (J30.2) Active confirmed Problem Chronic otitis media of left ear with effusion (H65.492) Active confirmed Problem Essential hypertension (90486344) Hypertension, unspecified type (I10) Active confirmed Problem Hyperlipidemia (30396852) Other hyperlipidemia (E78.49) Active confirmed Vital Signs Heart Rate 87 /min 09/25/2025 Blood pressure diastolic 80 mm Hg 09/25/2025 Height 65 in 09/25/2025 Blood pressure systolic 136 mm Hg 09/25/2025 Weight 231 lbs 09/25/2025 BMI 38.44 kg/m2 09/25/2025 Encounters Encounter Location Date Provider Diagnosis [facility] [address] [place] [phone] 09/25/2025 Cara Cutler Essential hypertensi on I10 ; Vitamin D deficiency E55.9 ; Vitamin B12 deficiency E53.8 ; Depression with anxiety F41.8 ; Seasonal allergic rhinitis, unspecified trigger J30.2 ; Mixed hyperlipidemia E78.2 and Tachycardia R00.0 [facility] [address] [place] [phone] 09/27/2025 [facility] [address] [place] [phone] 10/14/2025 Harjit Keene Assessments Encounter Date Diagnosis (ICD Code) Assessment [...] Treatment Pending Test Test Name Order Date Mammogram 10/14/2025 VITAMIN D, 25-HYDROXY 03/18/2021 Insurance Providers Payer Name Payer Address Payer Phone Subscriber Number Group Number Insured Name Patient Relationship to Insured Coverage Start Date Coverage End Date [employer] [facility] [address] [place], [place] [id number] APURVA ZHOU Self - patient is the insured Medications Administered Medication Instructions Date of Administration Dosage Notes Dexamethasone 08/15/2008 4 mg Medical (General) History Surgical History Surgery Date(Month/Year) Total hysterectomy 12/17/2021 Hospitalization History Reason Date(Month/Year)
== END 2025-10-28 23:59 | disposition home or self-care (01) ==
LOC: RAD 14:57
PROVIDERS: PCP Family Medicine; Visit Provider Family Medicine
DX: Z12.31 Encounter for screening mammogram for malignant neoplasm of breast (principal); R92.323 Mammographic fibroglandular density, bilateral breasts; Z80.3 Family history of malignant neoplasm of breast
CPT/HCPCS: 77063; 77067